=== PATIENT | male | born 1945 | race African-American/Black ===

== ENCOUNTER 2019-10-19 10:08 | Inpatient (IN) | payer OTHER ==
[2019-10-19 11:45] LABS: BASO % 0.3 % (0-2.0); EOS % 0.2 % (0-4.5); HEMATOCRIT 42.6 % (35.4-49); HEMOGLOBIN 13.9 GM/dL (11.7-16.9); LYMPH % 5.8 % (8-40); MCH 29.7 pg (25.7-33.7); MCHC 32.7 g/dl (32.0-35.9); MEAN CELL VOLUME 90.8 fl (80-96); MEAN PLT VOLUME 12.7 fl (7.5-11.1); MONO % 4.3 % (3.8-10.2); NEUT % 89.4 % (42.8-82.8); PLATELET COUNT 123 K/MM3 (134-434); RBC 4.69 M/mm3 (4.00-5.60); RDW 15.1 % (11.9-15.9); WHITE BLOOD COUNT 9.5 K/mm3 (4.0-10.0)
[2019-10-19 12:09] LABS: ALBUMIN 3.6 g/dl (3.4-5.0); BILIRUBIN,TOTAL 0.4 mg/dL (0.2-1); BLOOD UREA NITROGEN 24.5 mg/dL (7-18); CREATININE 1.7 mg/dL (0.55-1.3); MAGNESIUM 2.1 mg/dL (1.8-2.4); N-TERMINAL BNP 3053.1 pg/ml (5-450); PHOSPHOROUS 2.7 mg/dL (2.5-4.9); POTASSIUM 5.1 mmol/L (3.5-5.1); TOT PROT 6.8 g/dl (6.4-8.2)
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
[2019-10-19 12:45] LABS: PLATELET ESTIMATE DECREASED
--- NOTE | 2019-10-19 15:02 | EKG ---
Test Reason : Blood Pressure : / mmHG Vent. Rate : 080 BPM Atrial Rate : 080 BPM P-R Int : 178 ms QRS Dur : 102 ms QT Int : 406 ms P-R-T Axes : 013 -29 132 degrees QTc Int : 468 ms SINUS RHYTHM WITH OCCASIONAL PREMATURE VENTRICULAR COMPLEXES MODERATE VOLTAGE CRITERIA FOR LVH, MAY BE NORMAL VARIANT T WAVE ABNORMALITY, CONSIDER LATERAL ISCHEMIA PROLONGED QT ABNORMAL ECG WHEN COMPARED WITH ECG OF 08-FEB-2014 09:57, ST NO LONGER DEPRESSED IN INFERIOR LEADS T WAVE INVERSION MORE EVIDENT IN LATERAL LEADS QT HAS LENGTHENED Confirmed by DAVIDE DAVIS, STEFFANY ([id number]) on 10/19/2019 3:01:38 PM Referred By: Confirmed By:STEFFANY AUGUSTINE MD
[2019-10-19] MEDS ORDERED: ASPIRIN 325 MG TABLET PO ONE (15:29)
[2019-10-19] MEDS ORDERED: ASPIRIN 325 MG ENTERIC COATED TABLET (FP) ONE ×2 (15:39→15:46)
--- NOTE | 2019-10-19 15:53 | HP ---
Admitting History and Physical - Admission History of Present Illness: 74 yo M w/ a h/o asthma (hospitalized but never intubated in the past) comes in for evaluation.patient has h/o CHF, COPD, DM, HLD, CKD, he is on spiriva, tiotropium, metoprolol, metformin, isosorbide, hydralazine, gabapentin, flovent , atorvastatin, was seen at the office yesterday for SOB, Dx COPD exacerbation, which is why he was sent to the [facility]'s office for treatments He was at [facility] for a spirometry test, and was sent up for abnormal vital signs (oxygen or heart rate?). He denies any complaints at this time but admits to an episode of L sided chest pain after he got his EKG done. It lasted seconds and has since resolved. No CP now, no SOB but says that for the past 3 days, when he walks he gets SOB. He called his PMD, was placed on Prednisone which he is currently taking (Day 2). in ER he got aspirin EKLG done showed PVC History Source: Patient - Past Medical History Cardiovascular: Yes: Hyperlipdemia Pulmonary: Yes: Asthma Renal/: Yes: Renal Inusuff Endocrine: Yes: Diabetes Mellitus - Smoking History Smoking history: Former smoker Have you smoked in the past 12 months: No Aproximately how many cigarettes per day: 6 If you are a former smoker, when did you quit?: 1979 - Alcohol/Substance Use Hx Alcohol Use: No Home Medications - Allergies Allergies/Adverse Reactions: Allergies Allergy/AdvReac Type Severity Reaction Status Date / Time No Known Drug Allergies Allergy Verified 10/19/19 10:18 - Home Medications Home Medications: Ambulatory Orders Albuterol Sulfate Inhaler - [Ventolin Hfa Inhaler -] 2 inh PO Q4H 10/19/19 Albuterol Sulfate [Proair Hfa] 8.5 gm IH BID 10/19/19 Atorvastatin Ca [Lipitor] 20 mg PO HS 10/19/19 Fluticasone Propionate [Flovent Hfa] 110 mcg IH BID 10/19/19 Furosemide 20 mg PO DAILY 10/19/19 Hydralazine HCl 10 mg PO DAILY 10/19/19 Isosorbide Mononitrate [Isosorbide Mononitrate ER] 30 mg PO DAILY 10/19/19 Metformin HCl [Glucophage] 500 mg PO BID 10/19/19 Metoprolol Succinate 25 mg PO DAILY 10/19/19 Prednisone 20 mg PO DAILY 10/19/19 Tamsulosin HCl 0.4 mg PO TID 10/19/19 Tiotropium [place] [Spiriva Respimat] 4 gm IH DAILY 10/19/19 Review of Systems - Review of Systems Respiratory: reports: SOB, SOB on Exertion Physical Examination Vital Signs: Vital Signs Temperature 97.6 F 10/19/19 10:10 Pulse Rate 74 10/19/19 13:00 Respiratory Rate 18 10/19/19 13:00 Blood Pressure 112/78 10/19/19 13:00 O2 Sat by Pulse Oximetry (%) 99 10/19/19 13:00 Constitutional: Yes: Calm Neck: Yes: Trachea Midline Cardiovascular: Yes: Regular Rate and Rhythm, S1, S2 Respiratory: Yes: Diminished Gastrointestinal: Yes: Normal Bowel Sounds, Soft Edema: No Neurological: Yes: Alert, Oriented Labs: CBC, BMP 10/19/19 11:15 10/19/19 11:15 Imaging - Results X-ray: Report Reviewed (no congestion no inftrates) EKG: Report Reviewed (PVC noted) Problem List - Problems (1) Asthma Assessment/Plan: oxygen brnchodilators solumedrol pulm consult Code(s): J45.909 - UNSPECIFIED ASTHMA, UNCOMPLICATED (2) Abnormal EKG Assessment/Plan: cardiology eval echo trend troponin lipid panel Code(s): R94.31 - ABNORMAL ELECTROCARDIOGRAM [ECG] [EKG] (3) Diabetes Assessment/Plan: sliding scale hgba1c bgm Code(s): E11.9 - TYPE 2 DIABETES MELLITUS WITHOUT COMPLICATIONS Qualifiers: Diabetes mellitus type: type 2 (4) CKD (chronic kidney disease) Assessment/Plan: last creatinine was 1.7 as outpatient Code(s): N18.9 - CHRONIC KIDNEY DISEASE, UNSPECIFIED
[2019-10-19] MEDS ORDERED: HEPARIN NA (PORCINE) 5,000 UNITS/ML 1ML VIAL IVPUSH PRN ×2 (16:04)
[2019-10-19] MEDS ORDERED: HEPARIN INFUSION - 25,000 UNITS/500 ML INFUS.BAG IVPB ONE (16:36)
[2019-10-19] MEDS ORDERED: METOPROLOL TARTRATE 25 MG TABLET (FP) ONE (16:36)
[2019-10-19] MEDS: HEPARIN INFUSION - 25,000 UNITS/500 ML INFUS.BAG IV SCH (16:46)
[2019-10-19] MEDS: metoPROLOL SUCCINATE 25 MG TAB.SR.24H (FP) PO SCH (16:46)
[2019-10-19] MEDS: INSULIN SLIDING SCALE (NOVOLOG) 1 VIAL SQ SCH ×2 (19:09→23:31)
[2019-10-19] MEDS ORDERED: methylPREDNISolone NA SUCC 40 MG/1 ML VIAL ONE (19:11)
[2019-10-19] MEDS: methylPREDNISolone NA SUCC 40 MG/1 ML VIAL IVPUSH SCH (19:18)
[2019-10-19] MEDS ORDERED: ALBUTEROL SO4 0.083% IH SOL 2.5 MG/3 ML VIAL.NEB. NEB ONE ×2 (20:29→23:19)
[2019-10-19] MEDS: ALBUTEROL SO4 0.083% IH SOL 2.5 MG/3 ML VIAL.NEB. NEB SCH ×2 (20:40→23:32)
[2019-10-19] MEDS ORDERED: HEPARIN NA (PORCINE) 5,000 UNITS/ML 1ML VIAL ONE (23:19)
[2019-10-19] MEDS ORDERED: ATORVASTATIN CA 20 MG TABLET (FP) ONE (23:19)
[2019-10-19] MEDS: ATORVASTATIN CA 20 MG TABLET (FP) PO SCH (23:31)
[2019-10-20] MEDS ORDERED: ALBUTEROL SO4 0.083% IH SOL 2.5 MG/3 ML VIAL.NEB. NEB ONE ×2 (03:27→12:39)
[2019-10-20] MEDS ORDERED: methylPREDNISolone NA SUCC 40 MG/1 ML VIAL ONE (03:27)
[2019-10-20] MEDS: ALBUTEROL SO4 0.083% IH SOL 2.5 MG/3 ML VIAL.NEB. NEB SCH ×4 (03:31→20:45)
[2019-10-20] MEDS: methylPREDNISolone NA SUCC 40 MG/1 ML VIAL IVPUSH SCH ×3 (03:31→17:37)
[2019-10-20 07:47] LABS: BASO % 0.3 % (0-2.0); HEMATOCRIT 41.1 % (35.4-49); HEMOGLOBIN 13.4 GM/dL (11.7-16.9); LYMPH % 5.1 % (8-40); MCH 29.7 pg (25.7-33.7); MCHC 32.6 g/dl (32.0-35.9); MEAN CELL VOLUME 91.1 fl (80-96); MEAN PLT VOLUME 12.8 fl (7.5-11.1); NEUT % 91.6 % (42.8-82.8); PLATELET COUNT 99 K/MM3 (134-434); RBC 4.51 M/mm3 (4.00-5.60); RDW 15.2 % (11.9-15.9); WHITE BLOOD COUNT 8.8 K/mm3 (4.0-10.0)
[2019-10-20 08:09] LABS: ALBUMIN 3.5 g/dl (3.4-5.0); BILIRUBIN,TOTAL 0.3 mg/dL (0.2-1); CALCIUM 9.1 mg/dL (8.5-10.1); CREATININE 1.7 mg/dL (0.55-1.3); MAGNESIUM 2.2 mg/dL (1.8-2.4); N-TERMINAL BNP 2656.9 pg/ml (5-450); PHOSPHOROUS 3.1 mg/dL (2.5-4.9); POTASSIUM 4.5 mmol/L (3.5-5.1); TOT PROT 6.4 g/dl (6.4-8.2)
[2019-10-20] MEDS: INSULIN SLIDING SCALE (NOVOLOG) 1 VIAL SQ SCH ×4 (08:14→21:21)
[2019-10-20] MEDS: TAMSULOSIN HCL 0.4 MG CAP PO SCH (08:45)
[2019-10-20] MEDS: TIOTROPIUM BROMIDE 2.5 MCG (SPIRIVA) RESPIMAT INHALER IH SCH (10:25)
[2019-10-20] MEDS: metoPROLOL SUCCINATE 25 MG TAB.SR.24H (FP) PO SCH (10:25)
[2019-10-20 10:56] LABS: ANISOCYTOSIS 0; MACROCYTOSIS 0; PLATELET ESTIMATE DECREASED
--- NOTE | 2019-10-20 12:12 | PN ---
Progress Note, Physician Chief Complaint: patient seen and examined his breathing is much better on heparin drip for positive troponin echo pending - Current Medication List Current Medications: Active Medications Albuterol Sulfate (Ventolin 0.083% Nebulizer Soln -) 1 amp NEB RQ4H [facility] Last Admin: 10/20/19 08:16 Dose: 1 amp Atorvastatin Calcium (Lipitor -) 20 mg PO HS [facility] Last Admin: 10/19/19 23:31 Dose: 20 mg Heparin Sodium (Porcine) (Heparin -) 1,000 unit IVPUSH PRN PRN PRN Reason: Heparin Heparin Sodium (Porcine) (Heparin -) 5,000 unit IVPUSH PRN PRN PRN Reason: Heparin Heparin Sodium/Dextrose (Heparin Infusion -) 25,000 units in 500 mls @ 16 mls/ hr IV TITR [facility]; Protocol Last Titration: 10/19/19 23:29 Dose: 950 units/hr, 19 mls/hr Insulin Aspart (Novolog Vial Sliding Scale -) 1 vial SQ ACHS [facility]; Protocol Last Admin: 10/20/19 08:14 Dose: Not Given Methylprednisolone Sodium Succinate (Solu-Medrol -) 40 mg IVPUSH Q8H-IV [facility] Last Admin: 10/20/19 10:24 Dose: 40 mg Metoprolol Succinate (Toprol Xl -) 25 mg PO DAILY [facility] Last Admin: 10/20/19 10:25 Dose: 25 mg Tamsulosin HCl (Flomax -) 0.8 mg PO DAILY@0830 [facility] Last Admin: 10/20/19 08:45 Dose: 0.8 mg Tiotropium [place] (Spiriva Respimat) 2 puff IH DAILY [facility] Last Admin: 10/20/19 10:25 Dose: 2 puff - Objective Vital Signs: Vital Signs Temperature 97.9 F 10/20/19 05:47 Pulse Rate 70 10/20/19 05:47 Respiratory Rate 18 10/20/19 05:47 Blood Pressure 116/70 10/20/19 05:47 O2 Sat by Pulse Oximetry (%) 100 10/20/19 05:47 Constitutional: Yes: Calm Cardiovascular: Yes: Regular Rate and Rhythm, S1, S2 Respiratory: Yes: CTA Bilaterally Gastrointestinal: Yes: Normal Bowel Sounds, Soft Edema: No Neurological: Yes: Alert, Oriented Labs: CBC, BMP 10/20/19 05:30 10/20/19 05:30 Problem List - Problems (1) Asthma Assessment/Plan: oxygen bronchodilators solumedrol pulm eval Code(s): J45.909 - UNSPECIFIED ASTHMA, UNCOMPLICATED (2) Abnormal EKG Assessment/Plan: cardiology eval echo pending trending down lipid panel noted will start on statin Code(s): R94.31 - ABNORMAL ELECTROCARDIOGRAM [ECG] [EKG] (3) Diabetes Assessment/Plan: sliding scale hgba1c 6.1 bgm Code(s): E11.9 - TYPE 2 DIABETES MELLITUS WITHOUT COMPLICATIONS Qualifiers: Diabetes mellitus type: type 2 (4) CKD (chronic kidney disease) Assessment/Plan: last creatinine was 1.7 as outpatient and currently stable at baseline Code(s): N18.9 - CHRONIC KIDNEY DISEASE, UNSPECIFIED (5) BPH (benign prostatic hyperplasia) Assessment/Plan: flomax Code(s): N40.0 - BENIGN PROSTATIC HYPERPLASIA WITHOUT LOWER URINRY TRACT SYMP
--- NOTE | 2019-10-20 13:09 | EKG ---
Test Reason : Blood Pressure : / mmHG Vent. Rate : 079 BPM Atrial Rate : 079 BPM P-R Int : 168 ms QRS Dur : 102 ms QT Int : 424 ms P-R-T Axes : 032 -24 131 degrees QTc Int : 486 ms SINUS RHYTHM WITH FREQUENT and consecutive PREMATURE VENTRICULAR COMPLEXES MODERATE VOLTAGE CRITERIA FOR LVH, MAY BE NORMAL VARIANT T WAVE ABNORMALITY, CONSIDER LATERAL ISCHEMIA PROLONGED QT ABNORMAL ECG WHEN COMPARED WITH ECG OF 19-OCT-2019 12:41, NO SIGNIFICANT CHANGE WAS FOUND Confirmed by ROSY HENDRICKSON MD ([id number]) on 10/20/2019 1:08:53 PM Referred By: Confirmed By:ROSY HENDRICKSON MD
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
--- NOTE | 2019-10-20 14:03 | CON.CARD ---
Consult Consult Specialty:: Cardiology Referred by:: Dr. Tavarez Reason for Consultation:: SOB, chest pain, elevated troponin - History of Present Illness Chief Complaint: sob History of Present Illness: 74 year old man with a pmh HTN, HLD, DMII, CKD, COPD, h/o CHF admitted with sob and marrufo. He was started on treatment for presumed AE COPD as outpatient with prednisone but did not improve. On admission noted to have LILLIAN, and a mildly elevated troponin that has trended down with normal CK level. EKG showed nsr with frequent PVCs, LVH with possible lateral ischemia vs repolarization abnl. pt seen and examined in the ER in nad. receiving bronchodilator nebulizer and states he is feeling better. no current chest pain or sob. no palpitations. - Past Medical History Cardio/Vascular: Yes: Hyperlipdemia Pulmonary: Yes: Asthma Renal/: Yes: Renal Inusuff Endocrine: Yes: Diabetes Mellitus - Alcohol/Substance Use Hx Alcohol Use: No - Smoking History Smoking history: Former smoker Have you smoked in the past 12 months: No Aproximately how many cigarettes per day: 6 If you are a former smoker, when did you quit?: 1979 Home Medications - Allergies Allergies/Adverse Reactions: Allergies Allergy/AdvReac Type Severity Reaction Status Date / Time No Known Drug Allergies Allergy Verified 10/19/19 10:18 - Home Medications Home Medications: Ambulatory Orders Albuterol Sulfate Inhaler - [Ventolin Hfa Inhaler -] 2 inh PO Q4H 10/19/19 Albuterol Sulfate [Proair Hfa] 8.5 gm IH BID 10/19/19 Atorvastatin Ca [Lipitor] 20 mg PO HS 10/19/19 Fluticasone Propionate [Flovent Hfa] 110 mcg IH BID 10/19/19 Furosemide 20 mg PO DAILY 10/19/19 Hydralazine HCl 10 mg PO DAILY 10/19/19 Isosorbide Mononitrate [Isosorbide Mononitrate ER] 30 mg PO DAILY 10/19/19 Metformin HCl [Glucophage] 500 mg PO BID 10/19/19 Metoprolol Succinate 25 mg PO DAILY 10/19/19 Prednisone 20 mg PO DAILY 10/19/19 Tamsulosin HCl 0.4 mg PO TID 10/19/19 Tiotropium [place] [Spiriva Respimat] 4 gm IH DAILY 10/19/19 Vital Signs: Vital Signs Temperature 97.2 F L 10/20/19 13:00 Pulse Rate 71 10/20/19 13:00 Respiratory Rate 20 10/20/19 13:00 Blood Pressure 131/75 10/20/19 13:00 O2 Sat by Pulse Oximetry (%) 100 10/20/19 13:00 - Other Data Labs, Other Data: CBC, BMP 10/20/19 05:30 10/20/19 05:30 Troponin, BNP 10/19/19 10/20/19 15:50 05:30 Troponin I 0.66 H* 0.59 H B-Natriuretic Peptide 2656.9 H Troponin, BNP 10/19/19 10/20/19 15:50 05:30 Troponin I 0.66 H* 0.59 H B-Natriuretic Peptide 2656.9 H Assessment/Plan 74 year old man with a pmh HTN, HLD, DMII, CKD, COPD, h/o CHF admitted with sob and marrufo. He was started on treatment for presumed AE COPD as outpatient with prednisone but did not improve. On admission noted to have LILLIAN, and a mildly elevated troponin that has trended down with normal CK level. EKG showed nsr with frequent PVCs, LVH with possible lateral ischemia vs repolarization abnl. pt seen and examined in the ER in nad. receiving bronchodilator nebulizer and states he is feeling better. no current chest pain or sob. no palpitations. SOB/chest pain -likely multifactorial, primarily due to AE COPD -troponin was mildly elevated but trended down and with a normal CK level and in the setting of LILLIAN and possible CHF -not likely c/w ACS -receiving heparin gtt which can be stopped 10/21 -start ASA 81mg daily if no contraindications -cont statin -cont metoprolol if not felt to exacerbate COPD -no sig volume overload on exam or on Cxray -hold off on diuretics for now can use IV Lasix prn -check echo to evaluate LV function and valvular function -may consider ischemic evaluation when symptoms improve
--- NOTE | 2019-10-20 15:34 | CON.PULM ---
Consult Consult Specialty:: PULMONARY Referred by:: PMShelby Reason for Consultation:: COPD - History of Present Illness Chief Complaint: SOB/COUGH/WHEEZE History of Present Illness: 74 yo M w/ a h/o COPD/B. asthma (hospitalized but never intubated in the past) comes in for evaluation.patient has h/o CHF, COPD, DM, HLD, CKD, he is on spiriva, tiotropium, metoprolol, metformin, isosorbide, hydralazine, gabapentin , flovent, atorvastatin, was seen at pmd's office yesterday for SOB, Dx COPD exacerbation. He was at respiratory therapy for a spirometry test, and was sent up for abnormal vital signs. He denies any complaints at this time but admits to an episode of L sided chest pain after he got his EKG done. It lasted seconds and has since resolved. No CP now, no SOB but says that for the past 3 days, when he walks he gets SOB. He called his PMD, was placed on Prednisone which he is currently taking (Day 2). - History Source History Provided By: Patient, Medical Record Limitations to Obtaining History: Poor Historian - Past Medical History REQUIREMENTS MANAGER: No: Alzheimer's Cardio/Vascular: Yes: Hyperlipdemia Pulmonary: Yes: Asthma Renal/: Yes: Renal Inusuff Endocrine: Yes: Diabetes Mellitus - Alcohol/Substance Use Hx Alcohol Use: No - Smoking History Smoking history: Former smoker Have you smoked in the past 12 months: No Aproximately how many cigarettes per day: 6 If you are a former smoker, when did you quit?: 1979 Home Medications - Allergies Allergies/Adverse Reactions: Allergies Allergy/AdvReac Type Severity Reaction Status Date / Time No Known Drug Allergies Allergy Verified 10/19/19 10:18 - Home Medications Home Medications: Ambulatory Orders Albuterol Sulfate Inhaler - [Ventolin Hfa Inhaler -] 2 inh PO Q4H 10/19/19 Albuterol Sulfate [Proair Hfa] 8.5 gm IH BID 10/19/19 Atorvastatin Ca [Lipitor] 20 mg PO HS 10/19/19 Fluticasone Propionate [Flovent Hfa] 110 mcg IH BID 10/19/19 Furosemide 20 mg PO DAILY 10/19/19 Hydralazine HCl 10 mg PO DAILY 10/19/19 Isosorbide Mononitrate [Isosorbide Mononitrate ER] 30 mg PO DAILY 10/19/19 Metformin HCl [Glucophage] 500 mg PO BID 10/19/19 Metoprolol Succinate 25 mg PO DAILY 10/19/19 Prednisone 20 mg PO DAILY 10/19/19 Tamsulosin HCl 0.4 mg PO TID 10/19/19 Tiotropium [place] [Spiriva Respimat] 4 gm IH DAILY 10/19/19 Review of Systems - Review of Systems Constitutional: denies: Fever Eyes: denies: Blurred Vision HENT: denies: Difficult Swallowing Neck: denies: Decreased ROM Cardiovascular: reports: Chest Pain, Shortness of Breath Respiratory: reports: Cough, Exercise Intolerance, SOB on Exertion, Wheezing. denies: Hemoptysis Gastrointestinal: denies: Abdominal Pain Genitourinary: denies: Burning Physical Exam Vital Sings: Vital Signs Temperature 98.8 F 10/20/19 15:00 Pulse Rate 84 10/20/19 15:00 Respiratory Rate 20 10/20/19 15:00 Blood Pressure 132/78 10/20/19 15:00 O2 Sat by Pulse Oximetry (%) 99 10/20/19 15:00 Constitutional: Yes: Calm Eyes: Yes: EOM Intact HENT: Yes: Normocephalic Neck: Yes: Trachea Midline Cardiovascular: Yes: S1, S2 Respiratory: Yes: Diminished Gastrointestinal: Yes: Normal Bowel Sounds Extremities: Yes: WNL Labs: CBC, BMP 10/20/19 05:30 10/20/19 05:30 Imaging - Results Chest X-ray: Report Reviewed, Image Reviewed Problem List - Problems (1) COPD (chronic obstructive pulmonary disease) Code(s): J44.9 - CHRONIC OBSTRUCTIVE PULMONARY DISEASE, UNSPECIFIED (2) Asthma Code(s): J45.909 - UNSPECIFIED ASTHMA, UNCOMPLICATED (3) BPH (benign prostatic hyperplasia) Code(s): N40.0 - BENIGN PROSTATIC HYPERPLASIA WITHOUT LOWER URINRY TRACT SYMP (4) CKD (chronic kidney disease) Code(s): N18.9 - CHRONIC KIDNEY DISEASE, UNSPECIFIED (5) Diabetes Code(s): E11.9 - TYPE 2 DIABETES MELLITUS WITHOUT COMPLICATIONS Qualifiers: Diabetes mellitus type: type 2 Assessment/Plan A/ COPD WITH BRONCHOSPASTIC COMPONENT MULTIPLE CO-MORBID CONDITIONS LISTED CHEST PAIN LIKELY FROM COUGH CYCLE TROPS/EKG AM/ECHO ORDERED BY PMD CARDIO NOTE REVIEWED A/E COPD/FORMER SMOKER QUIT 2 MONTHS AGO SAYRA/ICS/LABA/LAMA/ANTIBIOTICS/SHORT COURSE IV STEROIDS ENCOURAGE SMOKING CESSATION OUTPATIENT PFT'S WILL FOLLOW Chip WHITAKER MD
--- NOTE | 2019-10-20 15:54 | PN ---
Teaching Attending Note Name of Resident: Juan Mckeon (Nephrology) ATTENDING PHYSICIAN STATEMENT I saw and evaluated the patient. I reviewed the resident's note and discussed the case with the resident. I agree with the resident's findings and plan as documented. Renal Pt is a 74 year old male with pmhx of htn, dm, ckd, copd, and chf who presents with shortness of breath. He was found to have elevated public policy coordinator and I was called to evaluate him. 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 He denies dysuria or hematuria. pmhx ckd htn dm copd chf nkda social hx denies family hx non contrib ros dyspnea Current Medications Generic Name Dose Route Start Last Admin Trade Name Freq PRN Reason Stop Dose Admin Albuterol Sulfate 1 amp 10/19/19 20:00 10/20/19 12:06 Ventolin 0.083% Nebulizer Soln - NEB 1 amp RQ4H [facility] Administration Atorvastatin Calcium 20 mg 10/19/19 22:00 10/19/19 23:31 Lipitor - PO 20 mg HS [facility] Administration Budesonide/Formoterol Fumarate 2 puff 10/20/19 22:00 Symbicort 160/4.5mcg - IH BID [facility] Heparin Sodium (Porcine) 1,000 unit 10/19/19 16:04 Heparin - IVPUSH PRN PRN Heparin Heparin Sodium (Porcine) 5,000 unit 10/19/19 16:04 Heparin - IVPUSH PRN PRN Heparin Heparin Sodium/Dextrose 25,000 units in 500 mls @ 16 mls/hr 10/19/19 16:15 23:29 Heparin Infusion - IV 950 units/hr TITR [facility] 19 mls/hr Titration Protocol 800 UNITS/HR Insulin Aspart 1 vial 10/19/19 16:30 10/20/19 12:07 Novolog Vial Sliding Scale - SQ Not Given ACHS [facility] Protocol Methylprednisolone Sodium Succinate 40 mg 10/19/19 18:00 10/20/19 10:24 Solu-Medrol - IVPUSH 40 mg Q8H-IV [facility] Administration Metoprolol Succinate 25 mg 10/20/19 10:00 10/20/19 10:25 Toprol Xl - PO 25 mg DAILY [facility] Administration Tamsulosin HCl 0.8 mg 10/20/19 08:30 10/20/19 08:45 Flomax - PO 0.8 mg DAILY@0830 [facility] Administration Tiotropium [place] 2 puff 10/20/19 10:00 10/20/19 10:25 Spiriva Respimat IH 2 puff DAILY [facility] Administration Last Vital Signs Temp Pulse Resp BP Pulse Ox 98.8 F 84 20 132/78 99 10/20/19 15:00 10/20/19 15:00 10/20/19 15:00 10/20/19 15:00 10/20/19 15:00 Laboratory Tests 10/19/19 10/20/19 11:15 05:30 Creatinine 1.7 H 1.7 H cardio s1s2 pulm clear GI soft ext leg edema neuro awake and alert Impression 1. CKD 2. htn 3. dm 4. chf 5. dyspnea 6. copd Plan - check ua - check renal ultrasound - outpt workup up - avoid nephrotoxins
--- NOTE | 2019-10-20 15:59 | ECHO ---
Name: ANTONY NEWMAN Exam:Adult Echocardiogram Study Date: 10/20/2019 03:28 PM Age: 74 yrs Height: 71 in Weight: 23 lb BSA: 0.84 m2 MMode/2D Measurements & Calculations IVSd: 0.99 cm Ao root diam: 3.1 cm LVIDd: 6.0 cm LA dimension: 4.2 cm LVIDs: 4.7 cm LVPWd: 1.3 cm LVPWs: 1.2 cm EDV(Teich): 177.9 ml ESV(Teich): 102.2 ml LVOT diam: 2.2 cm LAV (MOD-bp): 90.3 ml Doppler Measurements & Calculations MV E max katheryn: 102.0 cm/sec Ao V2 max: 126.0 cm/sec MV A max katheryn: 58.7 cm/sec Ao max P.5 mmHg MV E/A: 1.7 MV dec time: 0.21 sec AGUSTÍN(V,D): 2.1 cm2 LV V1 max P.1 mmHg MR max katheryn: 443.3 cm/sec LV V1 max: 71.8 cm/sec MR max P.6 mmHg PA V2 max: 97.1 cm/sec PA max P.8 mmHg Left Ventricle The left ventricle is mildly dilated. Left ventricular systolic function is severely reduced. Ejectio n Fraction = 25-30%. There is severe global hypokinesis of the left ventricle. Right Ventricle The right ventricle is grossly normal size. The right ventricular systolic function is grossly normal . Atria The left atrium is moderately dilated. Right atrial size is normal. Mitral Valve The mitral valve is normal in structure and function. There is no mitral valve stenosis. There is mil d to moderate mitral regurgitation. Tricuspid Valve The tricuspid valve is normal in structure and function. There is mild tricuspid regurgitation. Aortic Valve There is mild to moderate aortic sclerosis.;. No hemodynamically significant valvular aortic stenosis . No aortic regurgitation is present. Pulmonic Valve The pulmonic valve is not well seen, but is grossly normal. There is no pulmonic valvular stenosis. Great Vessels The aortic root is normal size. Pericardium/Pleura There is no pericardial effusion. Interpretation Summary The left ventricle is mildly dilated. There is severe global hypokinesis of the left ventricle. Left ventricular systolic function is severely reduced. Ejection Fraction = 25-30%. The left atrium is moderately dilated. There is mild to moderate mitral regurgitation. There is mild tricuspid regurgitation. There is mild to moderate aortic sclerosis.; There is no pericardial effusion. MD Romero *Klaus 10/20/2019 03:58 PM
[2019-10-20 18:14] VITALS: BMI 32.3
[2019-10-20 19:07] LABS: PH,URINE 5.5 (5.0-8.0); URINE APPEARANCE CLEAR; URINE BILIRUBIN NEGATIVE (NEGATIVE); URINE COLOR YELLOW; URINE GLUCOSE (UA) NEGATIVE (NEGATIVE); URINE KETONE NEGATIVE (NEGATIVE); URINE LEUK ESTERASE NEGATIVE (NEGATIVE); URINE NITRITE NEGATIVE (NEGATIVE); URINE PROTEIN NEGATIVE (NEGATIVE); URINE UROBILINOGEN 0.2 mg/dL (0.2-1.0)
[2019-10-20] MEDS: ATORVASTATIN CA 20 MG TABLET (FP) PO SCH (21:20)
[2019-10-20] MEDS: HEPARIN INFUSION - 25,000 UNITS/500 ML INFUS.BAG IV SCH (21:21)
[2019-10-20] MEDS: BUDESONIDE/FORMETEROL FUMARATE 160/4.5 mcg INHALER IH SCH (22:14)
[2019-10-21] MEDS: ALBUTEROL SO4 0.083% IH SOL 2.5 MG/3 ML VIAL.NEB. NEB SCH ×6 (00:05→20:24)
[2019-10-21] MEDS: methylPREDNISolone NA SUCC 40 MG/1 ML VIAL IVPUSH SCH ×3 (01:07→17:20)
[2019-10-21] MEDS: INSULIN SLIDING SCALE (NOVOLOG) 1 VIAL SQ SCH ×4 (06:00→21:17)
[2019-10-21 08:06] LABS: ALBUMIN 3.5 g/dl (3.4-5.0); BILIRUBIN,TOTAL 0.6 mg/dL (0.2-1); BLOOD UREA NITROGEN 40.3 mg/dL (7-18); CALCIUM 9.2 mg/dL (8.5-10.1); CREATININE 1.6 mg/dL (0.55-1.3); POTASSIUM 4.5 mmol/L (3.5-5.1); TOT PROT 6.4 g/dl (6.4-8.2)
--- NOTE | 2019-10-21 08:52 | PN ---
Progress Note, Physician Chief Complaint: AWAKE ALERT EVENTS AND NOTES REVIEWED STILL WITH DYSPNEA - Current Medication List Current Medications: Active Medications Albuterol Sulfate (Ventolin 0.083% Nebulizer Soln -) 1 amp NEB RQ4H [facility] Last Admin: 10/21/19 08:00 Dose: 1 amp Atorvastatin Calcium (Lipitor -) 20 mg PO HS [facility] Last Admin: 10/20/19 21:20 Dose: 20 mg Budesonide/Formoterol Fumarate (Symbicort 160/4.5mcg -) 2 puff IH BID [facility] Last Admin: 10/20/19 22:14 Dose: 2 puff Heparin Sodium (Porcine) (Heparin -) 1,000 unit IVPUSH PRN PRN PRN Reason: Heparin Heparin Sodium (Porcine) (Heparin -) 5,000 unit IVPUSH PRN PRN PRN Reason: Heparin Heparin Sodium/Dextrose (Heparin Infusion -) 25,000 units in 500 mls @ 16 mls/ hr IV TITR [facility]; Protocol Last Admin: 10/20/19 21:21 Dose: 950 units/hr, 19 mls/hr Insulin Aspart (Novolog Vial Sliding Scale -) 1 vial SQ ACHS [facility]; Protocol Last Admin: 10/21/19 06:00 Dose: Not Given Methylprednisolone Sodium Succinate (Solu-Medrol -) 40 mg IVPUSH Q8H-IV [facility] Last Admin: 10/21/19 01:07 Dose: 40 mg Metoprolol Succinate (Toprol Xl -) 25 mg PO DAILY [facility] Last Admin: 10/20/19 10:25 Dose: 25 mg Tamsulosin HCl (Flomax -) 0.8 mg PO DAILY@0830 [facility] Last Admin: 10/20/19 08:45 Dose: 0.8 mg Tiotropium [place] (Spiriva Respimat) 2 puff IH DAILY [facility] Last Admin: 10/20/19 10:25 Dose: 2 puff - Objective Vital Signs: Vital Signs Temperature 97.7 F 10/21/19 05:48 Pulse Rate 68 10/21/19 05:48 Respiratory Rate 20 10/21/19 05:48 Blood Pressure 124/64 10/21/19 05:48 O2 Sat by Pulse Oximetry (%) 98 10/20/19 20:36 Constitutional: Yes: Mild Distress Cardiovascular: Yes: Regular Rate and Rhythm Respiratory: Yes: Diminished Gastrointestinal: Yes: Soft Genitourinary: Yes: Other Labs: CBC, BMP 10/20/19 05:30 10/21/19 06:10 Problem List - Problems (1) Abnormal EKG Code(s): R94.31 - ABNORMAL ELECTROCARDIOGRAM [ECG] [EKG] (2) Asthma Code(s): J45.909 - UNSPECIFIED ASTHMA, UNCOMPLICATED (3) BPH (benign prostatic hyperplasia) Code(s): N40.0 - BENIGN PROSTATIC HYPERPLASIA WITHOUT LOWER URINRY TRACT SYMP (4) CKD (chronic kidney disease) Code(s): N18.9 - CHRONIC KIDNEY DISEASE, UNSPECIFIED Qualifiers: Chronic kidney disease stage: unspecified stage Qualified Code(s): N18.9 - Chronic kidney disease, unspecified (5) COPD (chronic obstructive pulmonary disease) Code(s): J44.9 - CHRONIC OBSTRUCTIVE PULMONARY DISEASE, UNSPECIFIED Qualifiers: COPD type: unspecified COPD Qualified Code(s): J44.9 - Chronic obstructive pulmonary disease, unspecified (6) Diabetes Code(s): E11.9 - TYPE 2 DIABETES MELLITUS WITHOUT COMPLICATIONS Qualifiers: Diabetes mellitus type: type 2 Assessment/Plan STEROIDS IV 02 SUPPORT CARDIAC WORKUP WILL NEED CARDIAC CATH ONCE WHEEZING IS RESOLVED DVT PROPHYLAXIS OOB TO CHAIR
[2019-10-21] MEDS: BUDESONIDE/FORMETEROL FUMARATE 160/4.5 mcg INHALER IH SCH ×2 (10:16→21:16)
[2019-10-21] MEDS: TAMSULOSIN HCL 0.4 MG CAP PO SCH (10:16)
[2019-10-21] MEDS: metoPROLOL SUCCINATE 25 MG TAB.SR.24H (FP) PO SCH (10:16)
[2019-10-21 10:56] LABS: HEMATOCRIT 42.5 % (35.4-49); HEMOGLOBIN 13.7 GM/dL (11.7-16.9); MCH 29.4 pg (25.7-33.7); MCHC 32.2 g/dl (32.0-35.9); MEAN CELL VOLUME 91.4 fl (80-96); MEAN PLT VOLUME 15.2 fl (7.5-11.1); PLATELET COUNT 111 K/MM3 (134-434); RBC 4.66 M/mm3 (4.00-5.60); WHITE BLOOD COUNT 13.3 K/mm3 (4.0-10.0)
--- NOTE | 2019-10-21 13:27 | PN ---
Progress Note, Physician Chief Complaint: No chest pain SOB improved Lying flat in bed Sinus rhythm with pvc's History of Present Illness: 74 year old man with a pmh HTN, HLD, DMII, CKD, COPD, h/o CHF admitted with sob and marrufo. He was started on treatment for presumed AE COPD as outpatient with prednisone but did not improve. On admission noted to have LILLIAN, and a mildly elevated troponin that has trended down with normal CK level. EKG showed nsr with frequent PVCs, LVH with possible lateral ischemia vs repolarization abnl. pt seen and examined in the ER in nad. receiving bronchodilator nebulizer and states he is feeling better. no current chest pain or sob. no palpitations. Echocardiogram 10/20/19: LVEF 25-30% - Current Medication List Current Medications: Active Medications Albuterol Sulfate (Ventolin 0.083% Nebulizer Soln -) 1 amp NEB RQ4H [facility] Last Admin: 10/21/19 12:00 Dose: 1 amp Atorvastatin Calcium (Lipitor -) 20 mg PO HS [facility] Last Admin: 10/20/19 21:20 Dose: 20 mg Budesonide/Formoterol Fumarate (Symbicort 160/4.5mcg -) 2 puff IH BID [facility] Last Admin: 10/21/19 10:16 Dose: 2 puff Heparin Sodium (Porcine) (Heparin -) 1,000 unit IVPUSH PRN PRN PRN Reason: Heparin Heparin Sodium (Porcine) (Heparin -) 5,000 unit IVPUSH PRN PRN PRN Reason: Heparin Heparin Sodium/Dextrose (Heparin Infusion -) 25,000 units in 500 mls @ 16 mls/ hr IV TITR [facility]; Protocol Last Admin: 10/20/19 21:21 Dose: 950 units/hr, 19 mls/hr Insulin Aspart (Novolog Vial Sliding Scale -) 1 vial SQ ACHS [facility]; Protocol Last Admin: 10/21/19 11:25 Dose: Not Given Methylprednisolone Sodium Succinate (Solu-Medrol -) 40 mg IVPUSH Q8H-IV [facility] Last Admin: 10/21/19 10:16 Dose: 40 mg Metoprolol Succinate (Toprol Xl -) 25 mg PO DAILY [facility] Last Admin: 10/21/19 10:16 Dose: 25 mg Tamsulosin HCl (Flomax -) 0.8 mg PO DAILY@0830 [facility] Last Admin: 10/21/19 10:16 Dose: 0.8 mg Tiotropium [place] (Spiriva Respimat) 2 puff IH DAILY [facility] Last Admin: 10/20/19 10:25 Dose: 2 puff - Objective Vital Signs: Vital Signs Temperature 97.7 F 10/21/19 10:10 Pulse Rate 77 10/21/19 10:10 Respiratory Rate 18 10/21/19 10:10 Blood Pressure 131/50 L 10/21/19 10:10 O2 Sat by Pulse Oximetry (%) 98 10/20/19 20:36 Constitutional: Yes: No Distress Neck: Yes: Supple Cardiovascular: Yes: Regular Rate and Rhythm, S1, S2. No: JVD, Murmur Respiratory: Yes: CTA Bilaterally Gastrointestinal: Yes: Soft Edema: No Labs: CBC, BMP 10/21/19 06:10 10/21/19 06:10 Assessment/Plan 74 year old man with a pmh HTN, HLD, DMII, CKD, COPD, h/o CHF admitted with sob and marrufo. He was started on treatment for presumed AE COPD as outpatient with prednisone but did not improve. On admission noted to have LILLIAN, and a mildly elevated troponin that has trended down with normal CK level. EKG showed nsr with frequent PVCs, LVH with possible lateral ischemia vs repolarization abnl. pt seen and examined in the ER in nad. receiving bronchodilator nebulizer and states he is feeling better. no current chest pain or sob. no palpitations. SOB/chest pain -likely multifactorial, primarily due to AE COPD -troponin was mildly elevated but trended down and with a normal CK level and in the setting of LILLIAN and possible CHF Stop heparin drip today -Aspirin 81mg daily, statin, low dose metoprolol started. -Today appears euvolemic on exam. -hold off on diuretics for now can use IV Lasix prn -Echocardiogram LVEF 25-30%, mild valve abnormalities. -Given echocardiogram findings, risk factors for CAD, and baseline ekg would plan for ischemia evaluation next week. Will monitor bun/cr prior. Will also ensure no active wheezing prior to any cath. Will re-eval on Wednesday and decide on timing. -intermediate card tender if BP and bun/cr/potassium allow will consider katerin/arb
--- NOTE | 2019-10-21 13:29 | PN ---
Progress Note (short form) - Note Progress Note: PULMONARY States breathing is improving. No cough or wheezing. Vital Signs Period Temp Pulse Resp BP Sys/Fuchs Pulse Ox Last 24 Hr 97.4 F-98.8 F 61-84 18-20 108-139/50-79 98-99 Gen: NAD at rest Heart: RRR Lung: decreased breath sounds at the bases Abd: soft, nontender Ext: no edema CBC, BMP 10/21/19 06:10 10/21/19 06:10 Active Medications Albuterol Sulfate (Ventolin 0.083% Nebulizer Soln -) 1 amp NEB RQ4H [facility] Last Admin: 10/21/19 12:00 Dose: 1 amp Atorvastatin Calcium (Lipitor -) 20 mg PO HS [facility] Last Admin: 10/20/19 21:20 Dose: 20 mg Budesonide/Formoterol Fumarate (Symbicort 160/4.5mcg -) 2 puff IH BID [facility] Last Admin: 10/21/19 10:16 Dose: 2 puff Heparin Sodium (Porcine) (Heparin -) 1,000 unit IVPUSH PRN PRN PRN Reason: Heparin Heparin Sodium (Porcine) (Heparin -) 5,000 unit IVPUSH PRN PRN PRN Reason: Heparin Heparin Sodium/Dextrose (Heparin Infusion -) 25,000 units in 500 mls @ 16 mls/ hr IV TITR [facility]; Protocol Last Admin: 10/20/19 21:21 Dose: 950 units/hr, 19 mls/hr Insulin Aspart (Novolog Vial Sliding Scale -) 1 vial SQ ACHS [facility]; Protocol Last Admin: 10/21/19 11:25 Dose: Not Given Methylprednisolone Sodium Succinate (Solu-Medrol -) 40 mg IVPUSH Q8H-IV [facility] Last Admin: 10/21/19 10:16 Dose: 40 mg Metoprolol Succinate (Toprol Xl -) 25 mg PO DAILY [facility] Last Admin: 10/21/19 10:16 Dose: 25 mg Tamsulosin HCl (Flomax -) 0.8 mg PO DAILY@0830 [facility] Last Admin: 10/21/19 10:16 Dose: 0.8 mg Tiotropium [place] (Spiriva Respimat) 2 puff IH DAILY [facility] Last Admin: 10/20/19 10:25 Dose: 2 puff A/P Acute COPD Exacerbation LV Systolic Dysfunction +Troponins likely [place] Ischemia CKD HTN DM Hyperlipidemia - continue medrol at current dose - can likely change to PO prednisone in AM - inhaled bronchodilators - O2 to keep SpO2 >90% - smoking cessation - outpt PFTs - DVT prophylaxis
[2019-10-21] MEDS: TIOTROPIUM BROMIDE 2.5 MCG (SPIRIVA) RESPIMAT INHALER IH SCH (14:20)
--- NOTE | 2019-10-21 15:31 | PN ---
Progress Note (short form) - Note Progress Note: covering dr ng 1. CKD 2. htn 3. dm 4. chf 5. dyspnea 6. copd Active Medications Albuterol Sulfate (Ventolin 0.083% Nebulizer Soln -) 1 amp NEB RQ4H [facility] Last Admin: 10/21/19 12:00 Dose: 1 amp Atorvastatin Calcium (Lipitor -) 20 mg PO HS [facility] Last Admin: 10/20/19 21:20 Dose: 20 mg Budesonide/Formoterol Fumarate (Symbicort 160/4.5mcg -) 2 puff IH BID [facility] Last Admin: 10/21/19 10:16 Dose: 2 puff Heparin Sodium (Porcine) (Heparin -) 1,000 unit IVPUSH PRN PRN PRN Reason: Heparin Heparin Sodium (Porcine) (Heparin -) 5,000 unit IVPUSH PRN PRN PRN Reason: Heparin Heparin Sodium/Dextrose (Heparin Infusion -) 25,000 units in 500 mls @ 16 mls/ hr IV TITR [facility]; Protocol Last Admin: 10/20/19 21:21 Dose: 950 units/hr, 19 mls/hr Insulin Aspart (Novolog Vial Sliding Scale -) 1 vial SQ ACHS [facility]; Protocol Last Admin: 10/21/19 11:25 Dose: Not Given Methylprednisolone Sodium Succinate (Solu-Medrol -) 40 mg IVPUSH Q8H-IV [facility] Last Admin: 10/21/19 10:16 Dose: 40 mg Metoprolol Succinate (Toprol Xl -) 25 mg PO DAILY [facility] Last Admin: 10/21/19 10:16 Dose: 25 mg Tamsulosin HCl (Flomax -) 0.8 mg PO DAILY@0830 [facility] Last Admin: 10/21/19 10:16 Dose: 0.8 mg Tiotropium [place] (Spiriva Respimat) 2 puff IH DAILY [facility] Last Admin: 10/21/19 14:20 Dose: 2 puff Last Vital Signs Temp Pulse Resp BP Pulse Ox 97.6 F 80 18 114/59 L 98 10/21/19 14:00 10/21/19 14:00 10/21/19 14:00 10/21/19 14:00 10/21/19 10:10 CBC, BMP 10/21/19 06:10 10/21/19 06:10 IMP- Prob ckd non-obstructive Plan - check ua - check renal ultrasound - outpt workup up - avoid nephrotoxins
[2019-10-21] MEDS: ATORVASTATIN CA 20 MG TABLET (FP) PO SCH (21:16)
[2019-10-22] MEDS: methylPREDNISolone NA SUCC 40 MG/1 ML VIAL IVPUSH SCH ×2 (02:28→09:31)
[2019-10-22] MEDS: ALBUTEROL SO4 0.083% IH SOL 2.5 MG/3 ML VIAL.NEB. NEB SCH ×6 (02:43→23:37)
[2019-10-22] MEDS: INSULIN SLIDING SCALE (NOVOLOG) 1 VIAL SQ SCH ×4 (06:06→22:28)
--- NOTE | 2019-10-22 07:50 | PN ---
Progress Note, Physician Chief Complaint: AWAKE ALERT FEEING BETTER NO CP/SOB REPORTED TODAY - Current Medication List Current Medications: Active Medications Albuterol Sulfate (Ventolin 0.083% Nebulizer Soln -) 1 amp NEB RQ4H [facility] Last Admin: 10/22/19 02:43 Dose: 1 amp Atorvastatin Calcium (Lipitor -) 20 mg PO HS [facility] Last Admin: 10/21/19 21:16 Dose: 20 mg Budesonide/Formoterol Fumarate (Symbicort 160/4.5mcg -) 2 puff IH BID [facility] Last Admin: 10/21/19 21:16 Dose: 2 puff Insulin Aspart (Novolog Vial Sliding Scale -) 1 vial SQ ACHS [facility]; Protocol Last Admin: 10/22/19 06:06 Dose: Not Given Methylprednisolone Sodium Succinate (Solu-Medrol -) 40 mg IVPUSH Q8H-IV [facility] Last Admin: 10/22/19 02:28 Dose: 40 mg Metoprolol Succinate (Toprol Xl -) 25 mg PO DAILY [facility] Last Admin: 10/21/19 10:16 Dose: 25 mg Tamsulosin HCl (Flomax -) 0.8 mg PO DAILY@0830 [facility] Last Admin: 10/21/19 10:16 Dose: 0.8 mg Tiotropium [place] (Spiriva Respimat) 2 puff IH DAILY [facility] Last Admin: 10/21/19 14:20 Dose: 2 puff - Objective Vital Signs: Vital Signs Temperature 97.8 F 10/22/19 06:00 Pulse Rate 91 H 10/22/19 06:00 Respiratory Rate 18 10/22/19 06:00 Blood Pressure 151/80 10/22/19 06:00 O2 Sat by Pulse Oximetry (%) 96 10/21/19 21:00 Constitutional: Yes: No Distress Cardiovascular: Yes: Regular Rate and Rhythm Respiratory: Yes: CTA Bilaterally Gastrointestinal: Yes: WNL Musculoskeletal: Yes: WNL Extremities: Yes: WNL Labs: CBC, BMP 10/21/19 06:10 10/21/19 06:10 Problem List - Problems (1) Abnormal EKG Code(s): R94.31 - ABNORMAL ELECTROCARDIOGRAM [ECG] [EKG] (2) Asthma Code(s): J45.909 - UNSPECIFIED ASTHMA, UNCOMPLICATED (3) BPH (benign prostatic hyperplasia) Code(s): N40.0 - BENIGN PROSTATIC HYPERPLASIA WITHOUT LOWER URINRY TRACT SYMP (4) CKD (chronic kidney disease) Code(s): N18.9 - CHRONIC KIDNEY DISEASE, UNSPECIFIED Qualifiers: Chronic kidney disease stage: unspecified stage Qualified Code(s): N18.9 - Chronic kidney disease, unspecified (5) COPD (chronic obstructive pulmonary disease) Code(s): J44.9 - CHRONIC OBSTRUCTIVE PULMONARY DISEASE, UNSPECIFIED Qualifiers: COPD type: unspecified COPD Qualified Code(s): J44.9 - Chronic obstructive pulmonary disease, unspecified (6) Diabetes Code(s): E11.9 - TYPE 2 DIABETES MELLITUS WITHOUT COMPLICATIONS Qualifiers: Diabetes mellitus type: type 2 Assessment/Plan MEDICALLY CLEARED FOR CARDIAC CATH D/W CARDIOLOGY FOR TRAMSFER ORDERS OOB TO CHAIR DVT PROPHYLAXIS TAPER OFF STEROIDS
[2019-10-22] MEDS: TAMSULOSIN HCL 0.4 MG CAP PO SCH (08:30)
[2019-10-22] MEDS: metoPROLOL SUCCINATE 25 MG TAB.SR.24H (FP) PO SCH (09:31)
[2019-10-22] MEDS: TIOTROPIUM BROMIDE 2.5 MCG (SPIRIVA) RESPIMAT INHALER IH SCH (09:38)
[2019-10-22] MEDS: BUDESONIDE/FORMETEROL FUMARATE 160/4.5 mcg INHALER IH SCH ×2 (09:38→22:26)
--- NOTE | 2019-10-22 13:37 | EKG ---
Test Reason : Blood Pressure : / mmHG Vent. Rate : 081 BPM Atrial Rate : 081 BPM P-R Int : 172 ms QRS Dur : 104 ms QT Int : 404 ms P-R-T Axes : 071 -32 132 degrees QTc Int : 469 ms SINUS RHYTHM WITH FREQUENT PREMATURE VENTRICULAR COMPLEXES POSSIBLE LEFT ATRIAL ENLARGEMENT LEFT AXIS DEVIATION LEFT VENTRICULAR HYPERTROPHY T WAVE ABNORMALITY, CONSIDER LATERAL ISCHEMIA PROLONGED QT ABNORMAL ECG WHEN COMPARED WITH ECG OF 08-FEB-2014 09:57, QRS DURATION HAS INCREASED T WAVE INVERSION MORE EVIDENT IN LATERAL LEADS QT HAS LENGTHENED Confirmed by MD Butch, Gal ([id number]) on 10/22/2019 1:37:45 PM Referred By: Confirmed By:Gal Rae MD
--- NOTE | 2019-10-22 13:37 | PN ---
Progress Note (short form) - Note Progress Note: PULMONARY States breathing is improving. No cough or wheezing. Vital Signs Period Temp Pulse Resp BP Sys/Fuchs Pulse Ox Last 24 Hr 97.3 F-97.9 F 68-91 18-20 114-153/55-80 96-97 Gen: NAD at rest Heart: RRR Lung: decreased breath sounds at the bases Abd: soft, nontender Ext: no edema CBC, BMP 10/21/19 06:10 10/21/19 06:10 Active Medications Albuterol Sulfate (Ventolin 0.083% Nebulizer Soln -) 1 amp NEB RQ4H [facility] Last Admin: 10/22/19 11:37 Dose: 1 amp Atorvastatin Calcium (Lipitor -) 20 mg PO HS [facility] Last Admin: 10/21/19 21:16 Dose: 20 mg Budesonide/Formoterol Fumarate (Symbicort 160/4.5mcg -) 2 puff IH BID [facility] Last Admin: 10/22/19 09:38 Dose: 2 puff Insulin Aspart (Novolog Vial Sliding Scale -) 1 vial SQ ACHS [facility]; Protocol Last Admin: 10/22/19 11:18 Dose: 2 units Methylprednisolone Sodium Succinate (Solu-Medrol -) 40 mg IVPUSH BID [facility] Metoprolol Succinate (Toprol Xl -) 25 mg PO DAILY [facility] Last Admin: 10/22/19 09:31 Dose: 25 mg Tamsulosin HCl (Flomax -) 0.8 mg PO DAILY@0830 [facility] Last Admin: 10/22/19 08:30 Dose: 0.8 mg Tiotropium [place] (Spiriva Respimat) 2 puff IH DAILY [facility] Last Admin: 10/22/19 09:38 Dose: 2 puff A/P Acute COPD Exacerbation LV Systolic Dysfunction +Troponins likely Demand Ischemia CKD HTN DM Hyperlipidemia - medrol taper - can likely change to PO prednisone in AM - inhaled bronchodilators - O2 to keep SpO2 >90% - smoking cessation - outpt PFTs - DVT prophylaxis
--- NOTE | 2019-10-22 20:43 | PN ---
Progress Note (short form) - Note Progress Note: covering dr ng 1. CKD 2. htn 3. dm 4. chf 5. dyspnea 6. copd Current Medications Albuterol Sulfate (Ventolin 0.083% Nebulizer Soln -) 1 amp NEB RQ4H [facility] Last Admin: 10/22/19 16:38 Dose: 1 amp Atorvastatin Calcium (Lipitor -) 20 mg PO HS [facility] Last Admin: 10/21/19 21:16 Dose: 20 mg Budesonide/Formoterol Fumarate (Symbicort 160/4.5mcg -) 2 puff IH BID [facility] Last Admin: 10/22/19 09:38 Dose: 2 puff Insulin Aspart (Novolog Vial Sliding Scale -) 1 vial SQ ACHS [facility]; Protocol Last Admin: 10/22/19 16:52 Dose: Not Given Methylprednisolone Sodium Succinate (Solu-Medrol -) 40 mg IVPUSH BID [facility] Metoprolol Succinate (Toprol Xl -) 25 mg PO DAILY [facility] Last Admin: 10/22/19 09:31 Dose: 25 mg Tamsulosin HCl (Flomax -) 0.8 mg PO DAILY@0830 [facility] Last Admin: 10/22/19 08:30 Dose: 0.8 mg Tiotropium [place] (Spiriva Respimat) 2 puff IH DAILY [facility] Last Admin: 10/22/19 09:38 Dose: 2 puff Last Vital Signs Temp Pulse Resp BP Pulse Ox 98.1 F 79 18 134/69 97 10/22/19 18:00 10/22/19 18:00 10/22/19 18:00 10/22/19 18:00 10/22/19 08:23 lungs clear Heart reg Abd soft CBC, BMP 10/21/19 06:10 10/21/19 06:10 IMP- ckd unclear base;line non-obstructive Plan- f/u labs in am -
[2019-10-22] MEDS ORDERED: methylPREDNISolone NA SUCC 40 MG/1 ML VIAL IVPUSH SCH (22:00)
[2019-10-22] MEDS: ATORVASTATIN CA 20 MG TABLET (FP) PO SCH (22:27)
[2019-10-23] MEDS: ALBUTEROL SO4 0.083% IH SOL 2.5 MG/3 ML VIAL.NEB. NEB SCH ×6 (03:31→20:30)
[2019-10-23] MEDS: INSULIN SLIDING SCALE (NOVOLOG) 1 VIAL SQ SCH ×4 (06:43→21:39)
[2019-10-23 08:02] LABS: ALBUMIN 3.2 g/dl (3.4-5.0); BILIRUBIN,TOTAL 0.4 mg/dL (0.2-1); BLOOD UREA NITROGEN 43.5 mg/dL (7-18); CALCIUM 8.7 mg/dL (8.5-10.1); CREATININE 1.7 mg/dL (0.55-1.3); POTASSIUM 4.7 mmol/L (3.5-5.1); TOT PROT 5.9 g/dl (6.4-8.2)
[2019-10-23] MEDS: TAMSULOSIN HCL 0.4 MG CAP PO SCH (08:34)
--- NOTE | 2019-10-23 08:41 | DS ---
Physical Examination Vital Signs: Vital Signs Temperature 97.4 F L 10/23/19 06:00 Pulse Rate 63 10/23/19 06:00 Respiratory Rate 20 10/23/19 06:00 Blood Pressure 144/58 L 10/23/19 06:00 O2 Sat by Pulse Oximetry (%) 96 10/22/19 20:38 Constitutional: Yes: No Distress Eyes: Yes: WNL HENT: Yes: WNL Neck: Yes: WNL Cardiovascular: Yes: Regular Rate and Rhythm Respiratory: Yes: CTA Bilaterally Gastrointestinal: Yes: WNL Musculoskeletal: Yes: Muscle Weakness Labs: CBC, BMP 10/21/19 06:10 10/23/19 06:10 Discharge Summary Problems reviewed: Yes Reason For Visit: CHEST PAIN Current Active Problems Abnormal EKG (Acute) Asthma (Acute) BPH (benign prostatic hyperplasia) (Acute) CKD (chronic kidney disease) (Acute) COPD (chronic obstructive pulmonary disease) (Acute) Diabetes (Acute) Procedures: Principal: IV STEROIDS/NEBS Hospital Course: ADMITTED TREATED FOR CARDIAC DECOMPENSATION CHF WITH EXACERBATION COPD TREATED WITH IV DIURESIS AND IV STEROIDS RESPIRATORY SUPPORT AND 02. Plan of Treatment: TRANSFERRING TO [facility] FOR CARDIAC CATH Condition: Improved - Instructions Diet, Activity, Other Instructions: FOLLOW UP DR ENCARNACION IN 1 WEEK [phone] [id number] TONY BURKS Referrals: Cliff Cancino MD [Primary Care Provider] - Disposition: TRANSFER ACUTE CARE/OTHER HOSP - Home Medications Comprehensive Discharge Medication List: Ambulatory Orders Albuterol Sulfate Inhaler - [Ventolin Hfa Inhaler -] 2 inh PO Q4H 10/19/19 Albuterol Sulfate [Proair Hfa] 8.5 gm IH BID 10/19/19 Atorvastatin Ca [Lipitor] 20 mg PO HS 10/19/19 Fluticasone Propionate [Flovent Hfa] 110 mcg IH BID 10/19/19 Furosemide 20 mg PO DAILY 10/19/19 Hydralazine HCl 10 mg PO DAILY 10/19/19 Isosorbide Mononitrate [Isosorbide Mononitrate ER] 30 mg PO DAILY 10/19/19 Metformin HCl [Glucophage] 500 mg PO BID 10/19/19 Metoprolol Succinate 25 mg PO DAILY 10/19/19 Prednisone 20 mg PO DAILY 10/19/19 Tamsulosin HCl 0.4 mg PO TID 10/19/19 Tiotropium [place] [Spiriva Respimat] 4 gm IH DAILY 10/19/19
[2019-10-23] MEDS: PANTOPRAZOLE 40 MG TABLET (FP) PO SCH (09:22)
[2019-10-23] MEDS: metoPROLOL SUCCINATE 25 MG TAB.SR.24H (FP) PO SCH (09:22)
[2019-10-23] MEDS: predniSONE 20 MG TABLET (UD) PO SCH (09:23)
[2019-10-23] MEDS: TIOTROPIUM BROMIDE 2.5 MCG (SPIRIVA) RESPIMAT INHALER IH SCH (09:24)
[2019-10-23] MEDS: BUDESONIDE/FORMETEROL FUMARATE 160/4.5 mcg INHALER IH SCH ×2 (09:24→21:39)
--- NOTE | 2019-10-23 09:25 | PN ---
Progress Note, Physician History of Present Illness: Pt seen and examined at bedside. He is awake and alert. he denies shortness of breath. - Current Medication List Current Medications: Active Medications Albuterol Sulfate (Ventolin 0.083% Nebulizer Soln -) 1 amp NEB RQ4H [facility] Last Admin: 10/23/19 07:35 Dose: 1 amp Atorvastatin Calcium (Lipitor -) 20 mg PO HS [facility] Last Admin: 10/22/19 22:27 Dose: 20 mg Budesonide/Formoterol Fumarate (Symbicort 160/4.5mcg -) 2 puff IH BID [facility] Last Admin: 10/22/19 22:26 Dose: 2 puff Insulin Aspart (Novolog Vial Sliding Scale -) 1 vial SQ ACHS [facility]; Protocol Last Admin: 10/23/19 06:43 Dose: Not Given Metoprolol Succinate (Toprol Xl -) 25 mg PO DAILY [facility] Last Admin: 10/22/19 09:31 Dose: 25 mg Pantoprazole Sodium (Protonix -) 40 mg PO DAILY [facility] Prednisone (Deltasone -) 50 mg PO DAILY [facility] Tamsulosin HCl (Flomax -) 0.8 mg PO DAILY@0830 [facility] Last Admin: 10/23/19 08:34 Dose: 0.8 mg Tiotropium [place] (Spiriva Respimat) 2 puff IH DAILY [facility] Last Admin: 10/22/19 09:38 Dose: 2 puff - Objective Vital Signs: Vital Signs Temperature 97.4 F L 10/23/19 06:00 Pulse Rate 63 10/23/19 06:00 Respiratory Rate 20 10/23/19 06:00 Blood Pressure 144/58 L 10/23/19 06:00 O2 Sat by Pulse Oximetry (%) 96 10/22/19 20:38 Constitutional: Yes: Calm Eyes: Yes: Conjunctiva Clear HENT: Yes: Atraumatic Neck: Yes: Supple Cardiovascular: Yes: S1, S2 Respiratory: Yes: CTA Bilaterally Gastrointestinal: Yes: Soft Genitourinary: Yes: WNL Musculoskeletal: Yes: WNL Edema: No Integumentary: Yes: WNL Neurological: Yes: Oriented Psychiatric: Yes: Oriented Labs: CBC, BMP 10/21/19 06:10 10/23/19 06:10 Assessment/Plan Current Medications Generic Name Dose Route Start Last Admin Trade Name Freq PRN Reason Stop Dose Admin Albuterol Sulfate 1 amp 10/19/19 20:00 10/23/19 07:35 Ventolin 0.083% Nebulizer Soln - NEB 1 amp RQ4H [facility] Administration Atorvastatin Calcium 20 mg 10/19/19 22:00 10/22/19 22:27 Lipitor - PO 20 mg HS [facility] Administration Budesonide/Formoterol Fumarate 2 puff 10/20/19 22:00 10/22/19 22:26 Symbicort 160/4.5mcg - IH 2 puff BID [facility] Administration Insulin Aspart 1 vial 10/19/19 16:30 10/23/19 06:43 Novolog Vial Sliding Scale - SQ Not Given ACHS [facility] Protocol Metoprolol Succinate 25 mg 10/20/19 10:00 10/22/19 09:31 Toprol Xl - PO 25 mg DAILY [facility] Administration Pantoprazole Sodium 40 mg 10/23/19 10:00 Protonix - PO DAILY [facility] Prednisone 50 mg 10/23/19 10:00 Deltasone - PO DAILY [facility] Tamsulosin HCl 0.8 mg 10/20/19 08:30 10/23/19 08:34 Flomax - PO 0.8 mg DAILY@0830 [facility] Administration Tiotropium [place] 2 puff 10/20/19 10:00 10/22/19 09:38 Spiriva Respimat IH 2 puff DAILY [facility] Administration Laboratory Tests 10/20/19 17:45 Urine Protein Negative Urine Blood Negative Impression 1. CKD 2. htn 3. dm 4. chf 5. dyspnea 6. copd Plan - ua neg for blood or protein - will need outpt follow up - renal ultrasound reviewed - should see urology as outpt as well - avoid nephrotoxins
[2019-10-23 10:51] LABS: HEMATOCRIT 42.8 % (35.4-49); HEMOGLOBIN 13.8 GM/dL (11.7-16.9); MCH 29.5 pg (25.7-33.7); MCHC 32.3 g/dl (32.0-35.9); MEAN CELL VOLUME 91.1 fl (80-96); MEAN PLT VOLUME 12.9 fl (7.5-11.1); PLATELET COUNT 113 K/MM3 (134-434); RDW 15.3 % (11.9-15.9); WHITE BLOOD COUNT 11.8 K/mm3 (4.0-10.0)
--- NOTE | 2019-10-23 11:30 | PN ---
Progress Note (short form) - Note Progress Note: Breathing is improving. No cough or wheezing. No acute events overnight. Intake & Output 10/20/19 10/21/19 10/22/19 10/23/19 23:59 23:59 23:59 23:59 Intake Total 263 398 2320 240 Output Total 8038 415 4249 1000 Balance -1355 161 130 -760 Weight 223 lb 2 oz 221 lb 9.6 oz 224 lb 6.4 oz 221 lb 6.4 oz Last Vital Signs Temp Pulse Resp BP Pulse Ox 97.6 F 68 19 129/66 96 10/23/19 09:20 10/23/19 09:20 10/23/19 09:20 10/23/19 09:20 10/22/19 20:38 Active Medications Albuterol Sulfate (Ventolin 0.083% Nebulizer Soln -) 1 amp NEB RQ4H [facility] Last Admin: 10/23/19 07:35 Dose: 1 amp Atorvastatin Calcium (Lipitor -) 20 mg PO HS [facility] Last Admin: 10/22/19 22:27 Dose: 20 mg Budesonide/Formoterol Fumarate (Symbicort 160/4.5mcg -) 2 puff IH BID [facility] Last Admin: 10/23/19 09:24 Dose: 2 puff Insulin Aspart (Novolog Vial Sliding Scale -) 1 vial SQ ACHS [facility]; Protocol Last Admin: 10/23/19 06:43 Dose: Not Given Metoprolol Succinate (Toprol Xl -) 25 mg PO DAILY [facility] Last Admin: 10/23/19 09:22 Dose: 25 mg Pantoprazole Sodium (Protonix -) 40 mg PO DAILY [facility] Last Admin: 10/23/19 09:22 Dose: 40 mg Prednisone (Deltasone -) 50 mg PO DAILY [facility] Last Admin: 10/23/19 09:23 Dose: 50 mg Tamsulosin HCl (Flomax -) 0.8 mg PO DAILY@0830 [facility] Last Admin: 10/23/19 08:34 Dose: 0.8 mg Tiotropium [place] (Spiriva Respimat) 2 puff IH DAILY [facility] Last Admin: 10/23/19 09:24 Dose: 2 puff Gen: NAD at rest Heart: RRR Lung: decreased breath sounds at the bases Abd: soft, nontender Ext: no edema Laboratory Results - last 24 hr 1110/22/19 10/23/19 16:50 22:27 05:05 WBC RBC Hgb Hct MCV MCH MCHC RDW Plt Count MPV Sodium Potassium Chloride Carbon Dioxide Anion Gap BUN Creatinine Est GFR (CKD-EPI)AfAm Est GFR (CKD-EPI)NonAf POC Glucometer 134 186 161 Random Glucose Calcium Total Bilirubin AST ALT Alkaline Phosphatase Total Protein Albumin 10/23/19 10/23/19 06:10 06:10 WBC 11.8 H RBC 4.70 Hgb 13.8 Hct 42.8 MCV 91.1 MCH 29.5 MCHC 32.3 RDW 15.3 Plt Count 113 L MPV 12.9 H D Sodium 138 Potassium 4.7 Chloride 107 Carbon Dioxide 25 Anion Gap 6 L BUN 43.5 H Creatinine 1.7 H Est GFR (CKD-EPI)AfAm 44.73 Est GFR (CKD-EPI)NonAf 38.59 POC Glucometer Random Glucose 152 H Calcium 8.7 Total Bilirubin 0.4 AST 26 ALT 79 H Alkaline Phosphatase 63 Total Protein 5.9 L Albumin 3.2 L A/P Resolving Acute COPD Exacerbation LV Systolic Dysfunction +Troponins likely Demand Ischemia CKD HTN DM Hyperlipidemia - Prednisone - inhaled bronchodilators - O2 to keep SpO2 >90% - smoking cessation - outpt PFTs - DVT prophylaxis - For transfer to [facility] for cardiac cath Dr Guerin
--- NOTE | 2019-10-23 13:03 | PN ---
Progress Note, Physician Chief Complaint: The patient appears comfortable at the time of exam. he reports no chest pain, shortness of breath, palpitation or dizziness. Telemetry reviewed, it showed sinus rhythm with frequent VPCs. History of Present Illness: 74 year old man with a PMHx of HTN, HLD, DM-II, CKD, COPD, h/o CHF admitted with shortness of breath and worsening APARICIO. He was treated for COPD exacerbation with IV steroids with improvement. TITA and mildly elevated troponin noted. Troponin has trended down with normal CK level. EKG showed nsr with frequent PVCs, LVH with possible lateral ischemia vs repolarization abnl. Echo 10/20/19: Mild LA dilatation with severe global LV systolic dysfunction. LVEF 25-30%. Grossly normal RV. Moderate LA dilatation. Moderate MR. - Current Medication List Current Medications: Active Medications Albuterol Sulfate (Ventolin 0.083% Nebulizer Soln -) 1 amp NEB RQ4H [facility] Last Admin: 10/23/19 12:05 Dose: 1 amp Atorvastatin Calcium (Lipitor -) 20 mg PO HS [facility] Last Admin: 10/22/19 22:27 Dose: 20 mg Budesonide/Formoterol Fumarate (Symbicort 160/4.5mcg -) 2 puff IH BID [facility] Last Admin: 10/23/19 09:24 Dose: 2 puff Insulin Aspart (Novolog Vial Sliding Scale -) 1 vial SQ ACHS [facility]; Protocol Last Admin: 10/23/19 11:59 Dose: Not Given Metoprolol Succinate (Toprol Xl -) 25 mg PO DAILY [facility] Last Admin: 10/23/19 09:22 Dose: 25 mg Pantoprazole Sodium (Protonix -) 40 mg PO DAILY [facility] Last Admin: 10/23/19 09:22 Dose: 40 mg Prednisone (Deltasone -) 50 mg PO DAILY [facility] Last Admin: 10/23/19 09:23 Dose: 50 mg Tamsulosin HCl (Flomax -) 0.8 mg PO DAILY@0830 [facility] Last Admin: 10/23/19 08:34 Dose: 0.8 mg Tiotropium [place] (Spiriva Respimat) 2 puff IH DAILY [facility] Last Admin: 10/23/19 09:24 Dose: 2 puff - Objective Vital Signs: Vital Signs Temperature 97.6 F 10/23/19 09:20 Pulse Rate 68 10/23/19 09:20 Respiratory Rate 19 10/23/19 09:20 Blood Pressure 129/66 10/23/19 09:20 O2 Sat by Pulse Oximetry (%) 97 10/23/19 09:00 General: Well developed. Well nourished. No acute distress. Head: Normocephalic. Atraumatic, Eyes: PERRLA, EOMI. Sclerae anicteric. Conjunctivae clear. Neck: Supple. (+) JVD. No bruits. Heart: Normal S1, S2: Regular rhythm and rate. No murmur. No gallop or rub. Lungs: Symmetrical poor air entry. Clear to auscultation. No crackles. No wheezing or rhonchi. Abdomen: Soft. Bowel sound positive. Non tender. No masses. Extremities: No edema. No clubbing or cyanosis. PD 2+, equal bilaterally. Neuro: Intact, no focal findings. AAO X3. Labs: CBC, BMP 10/23/19 06:10 10/23/19 06:10 Assessment/Plan 74 year old man with a PMHx of HTN, HLD, DM-II, CKD, COPD, h/o CHF admitted with shortness of breath and worsening APARICIO. He was treated for COPD exacerbation with IV steroids with improvement. TITA and mildly elevated troponin noted. Troponin has trended down with normal CK level. EKG showed nsr with frequent PVCs, LVH with possible lateral ischemia vs repolarization abnl. Echo 10/20/19: Mild LA dilatation with severe global LV systolic dysfunction. LVEF 25-30%. Grossly normal RV. Moderate LA dilatation. Moderate MR. Systolic CHF and NSTEMI. -Likely multifactorial, primarily due to COPD exacerbation, improved with IV steroid. Currently on PO prednisone. . -Troponin was mildly elevated but trended down and with a normal CK level and in the setting of TITA and possible CHF -Continue aspirin 81mg daily, statin, low dose metoprolol. -Currently euvolemic on exam. -hold off on diuretics for now can use IV Lasix prn -Echocardiogram LVEF 25-30%, mild valve abnormalities. -Given echocardiogram findings, risk factors for CAD, and baseline ekg would plan for ischemia evaluation. BUN and creat stable for the past three days. Dyspnea inproved. Right and left cardiac cath is scheduled for tomorrow at [facility]. Please keep the patient NPO after midnight.
[2019-10-23] MEDS: ATORVASTATIN CA 20 MG TABLET (FP) PO SCH (21:39)
[2019-10-24] MEDS: ALBUTEROL SO4 0.083% IH SOL 2.5 MG/3 ML VIAL.NEB. NEB SCH ×5 (00:45→15:33)
[2019-10-24] MEDS: INSULIN SLIDING SCALE (NOVOLOG) 1 VIAL SQ SCH ×2 (06:46→11:41)
--- NOTE | 2019-10-24 08:52 | DS ---
Physical Examination Vital Signs: Vital Signs Temperature 98.8 F 10/24/19 08:47 Pulse Rate 65 10/24/19 08:47 Respiratory Rate 18 10/24/19 08:47 Blood Pressure 120/73 10/24/19 08:47 O2 Sat by Pulse Oximetry (%) 96 10/23/19 21:00 Labs: CBC, BMP 10/23/19 06:10 10/23/19 06:10 Discharge Summary Problems reviewed: Yes Reason For Visit: CHEST PAIN Current Active Problems Abnormal EKG (Acute) Asthma (Acute) BPH (benign prostatic hyperplasia) (Acute) CKD (chronic kidney disease) (Acute) COPD (chronic obstructive pulmonary disease) (Acute) Diabetes (Acute) Hospital Course: ADMITTED TREATED FOR CARDIAC DECOMPENSATION CHF WITH EXACERBATION COPD TREATED WITH IV DIURESIS AND IV STEROIDS RESPIRATORY SUPPORT AND 02. cardio dr jenkins Systolic CHF and NSTEMI. -Likely multifactorial, primarily due to COPD exacerbation, improved with IV steroid. Currently on PO prednisone. . -Troponin was mildly elevated but trended down and with a normal CK level and in the setting of TITA and possible CHF -Continue aspirin 81mg daily, statin, low dose metoprolol. -Currently euvolemic on exam. -hold off on diuretics for now can use IV Lasix prn -Echocardiogram LVEF 25-30%, mild valve abnormalities. -Given echocardiogram findings, risk factors for CAD, and baseline ekg would plan for ischemia evaluation. BUN and creat stable for the past three days. Dyspnea inproved. Right and left cardiac cath is scheduled for today at [facility]. Please keep the patient NPO for procedure except meds. Check repeat BMP today. Plan of Treatment: TRANSFERRING TO [facility] FOR CARDIAC CATH Condition: Improved - Instructions Diet, Activity, Other Instructions: FOLLOW UP DR ENCARNACION IN 1 WEEK [phone] 65 [address]KS Referrals: Cliff Cancino MD [Primary Care Provider] - Disposition: TRANSFER ACUTE CARE/OTHER HOSP - Home Medications Comprehensive Discharge Medication List: Ambulatory Orders Albuterol Sulfate Inhaler - [Ventolin Hfa Inhaler -] 2 inh PO Q4H 10/19/19 Albuterol Sulfate [Proair Hfa] 8.5 gm IH BID 10/19/19 Atorvastatin Ca [Lipitor] 20 mg PO HS 10/19/19 Fluticasone Propionate [Flovent Hfa] 110 mcg IH BID 10/19/19 Furosemide 20 mg PO DAILY 10/19/19 Hydralazine HCl 10 mg PO DAILY 10/19/19 Isosorbide Mononitrate [Isosorbide Mononitrate ER] 30 mg PO DAILY 10/19/19 Metformin HCl [Glucophage] 500 mg PO BID 10/19/19 Metoprolol Succinate 25 mg PO DAILY 10/19/19 Prednisone 20 mg PO DAILY 10/19/19 Tamsulosin HCl 0.4 mg PO TID 10/19/19 Tiotropium [place] [Spiriva Respimat] 4 gm IH DAILY 10/19/19 Albuterol 0.083% Nebulizer [place] [Ventolin 0.083% Nebulizer Soln -] 1 amp NEB RQ4H amp 10/23/19 Atorvastatin Ca [Lipitor] 20 mg PO HS tablet 10/23/19 Budesonide/Formeterol Fumarate [SYMBICORT 160/4.5mcg -] 2 puff IH BID inhaler 10/23/19 Heparin - 5,000 unit IVPUSH PRN PRN vial 10/23/19 Insulin Sliding Scale [Novolog Vial Sliding Scale -] 1 vial SQ ACHS units 10/23 Metoprolol Succinate [Toprol XL -] 25 mg PO DAILY tab.sr.24h 10/23/19 Pantoprazole Sodium [Protonix] 40 mg PO DAILY #30 tablet. 10/23/19 Prednisone [Prednisone 50 MG TABLETS] See Taper PO DAILY #10 tablet 10/23/19 Tamsulosin HCl [Flomax -] 0.8 mg PO DAILY@0830 cap.er.24h 10/23/19 Tiotropium [place] [Spiriva Respimat] 2 puff IH DAILY inhaler 10/23/19
[2019-10-24] MEDS: predniSONE 20 MG TABLET (UD) PO SCH (09:24)
[2019-10-24] MEDS: PANTOPRAZOLE 40 MG TABLET (FP) PO SCH (09:25)
[2019-10-24] MEDS: TAMSULOSIN HCL 0.4 MG CAP PO SCH (09:25)
[2019-10-24] MEDS: metoPROLOL SUCCINATE 25 MG TAB.SR.24H (FP) PO SCH (09:25)
[2019-10-24] MEDS: TIOTROPIUM BROMIDE 2.5 MCG (SPIRIVA) RESPIMAT INHALER IH SCH (09:27)
[2019-10-24] MEDS: BUDESONIDE/FORMETEROL FUMARATE 160/4.5 mcg INHALER IH SCH (09:27)
--- NOTE | 2019-10-24 10:36 | PN ---
Progress Note, Physician History of Present Illness: pt seen and examined today in nad. lying flat, comfortably. no sob. states he is feeling better. no overnight events. no new complaints. - Current Medication List Current Medications: Active Medications Albuterol Sulfate (Ventolin 0.083% Nebulizer Soln -) 1 amp NEB RQ4H [facility] Last Admin: 10/24/19 06:59 Dose: 1 amp Atorvastatin Calcium (Lipitor -) 20 mg PO HS [facility] Last Admin: 10/23/19 21:39 Dose: 20 mg Budesonide/Formoterol Fumarate (Symbicort 160/4.5mcg -) 2 puff IH BID [facility] Last Admin: 10/24/19 09:27 Dose: 2 puff Insulin Aspart (Novolog Vial Sliding Scale -) 1 vial SQ ACHS [facility]; Protocol Last Admin: 10/24/19 06:46 Dose: Not Given Metoprolol Succinate (Toprol Xl -) 25 mg PO DAILY [facility] Last Admin: 10/24/19 09:25 Dose: 25 mg Pantoprazole Sodium (Protonix -) 40 mg PO DAILY [facility] Last Admin: 10/24/19 09:25 Dose: 40 mg Prednisone (Deltasone -) 50 mg PO DAILY [facility] Last Admin: 10/24/19 09:24 Dose: 50 mg Tamsulosin HCl (Flomax -) 0.8 mg PO DAILY@0830 [facility] Last Admin: 10/24/19 09:25 Dose: 0.8 mg Tiotropium [place] (Spiriva Respimat) 2 puff IH DAILY [facility] Last Admin: 10/24/19 09:27 Dose: 2 puff - Objective Vital Signs: Vital Signs Temperature 98.8 F 10/24/19 08:47 Pulse Rate 65 10/24/19 08:47 Respiratory Rate 18 10/24/19 08:47 Blood Pressure 120/73 10/24/19 08:47 O2 Sat by Pulse Oximetry (%) 96 10/23/19 21:00 Constitutional: Yes: No Distress, Calm Eyes: Yes: Conjunctiva Clear, EOM Intact HENT: Yes: Atraumatic, Normocephalic Neck: Yes: Supple, Trachea Midline Cardiovascular: Yes: Regular Rate and Rhythm, S1, S2. No: Bradycardia, Tachycardia, Pulse Irregular, Bruit, JVD, Gallop, Murmur, Rub, S3, S4, Varicosities Respiratory: Yes: Regular, CTA Bilaterally. No: Rales, Rhonchi, SOB, Wheezes Gastrointestinal: Yes: Normal Bowel Sounds, Soft. No: Distention, Tenderness Musculoskeletal: Yes: WNL Extremities: Yes: WNL Edema: No Peripheral Pulses WNL: Yes Peripheral Pulses: Left Doralis Pedis: 2+, Right Dorsalis Pedis: 2+ Neurological: Yes: Alert, Oriented Psychiatric: Yes: Alert, Oriented Labs: CBC, BMP 10/23/19 06:10 10/23/19 06:10 - ....Imaging Chest X-ray: Report Reviewed, Image Reviewed EKG: Report Reviewed, Image Reviewed Other: Report Reviewed, Image Reviewed (tele-nsr, frequent pvcs) Assessment/Plan 74 year old man with a PMHx of HTN, HLD, DM-II, CKD, COPD, h/o CHF admitted with shortness of breath and worsening APARICIO. He was treated for COPD exacerbation with IV steroids with improvement. TITA and mildly elevated troponin noted. Troponin has trended down with normal CK level. EKG showed nsr with frequent PVCs, LVH with possible lateral ischemia vs repolarization abnl. Echo 10/20/19: Mild LA dilatation with severe global LV systolic dysfunction. LVEF 25-30%. Grossly normal RV. Moderate LA dilatation. Moderate MR. Systolic CHF and NSTEMI. -Likely multifactorial, primarily due to COPD exacerbation, improved with IV steroid. Currently on PO prednisone. . -Troponin was mildly elevated but trended down and with a normal CK level and in the setting of TITA and possible CHF -Continue aspirin 81mg daily, statin, low dose metoprolol. -Currently euvolemic on exam. -hold off on diuretics for now can use IV Lasix prn -Echocardiogram LVEF 25-30%, mild valve abnormalities. -Given echocardiogram findings, risk factors for CAD, and baseline ekg would plan for ischemia evaluation. BUN and creat stable for the past three days. Dyspnea inproved. Right and left cardiac cath is scheduled for today at [facility]. Please keep the patient NPO for procedure except meds. Check repeat BMP today.
--- NOTE | 2019-10-24 12:29 | PN ---
Progress Note, Physician History of Present Illness: pulmonary alert,comfortable,-resp distress - Current Medication List Current Medications: Active Medications Albuterol Sulfate (Ventolin 0.083% Nebulizer Soln -) 1 amp NEB RQ4H [facility] Last Admin: 10/24/19 11:14 Dose: 1 amp Atorvastatin Calcium (Lipitor -) 20 mg PO HS [facility] Last Admin: 10/23/19 21:39 Dose: 20 mg Budesonide/Formoterol Fumarate (Symbicort 160/4.5mcg -) 2 puff IH BID [facility] Last Admin: 10/24/19 09:27 Dose: 2 puff Insulin Aspart (Novolog Vial Sliding Scale -) 1 vial SQ ACHS [facility]; Protocol Last Admin: 10/24/19 11:41 Dose: Not Given Metoprolol Succinate (Toprol Xl -) 25 mg PO DAILY [facility] Last Admin: 10/24/19 09:25 Dose: 25 mg Pantoprazole Sodium (Protonix -) 40 mg PO DAILY [facility] Last Admin: 10/24/19 09:25 Dose: 40 mg Prednisone (Deltasone -) 50 mg PO DAILY [facility] Last Admin: 10/24/19 09:24 Dose: 50 mg Tamsulosin HCl (Flomax -) 0.8 mg PO DAILY@0830 [facility] Last Admin: 10/24/19 09:25 Dose: 0.8 mg Tiotropium [place] (Spiriva Respimat) 2 puff IH DAILY [facility] Last Admin: 10/24/19 09:27 Dose: 2 puff - Objective Vital Signs: Vital Signs Temperature 98.8 F 10/24/19 08:47 Pulse Rate 65 10/24/19 08:47 Respiratory Rate 18 10/24/19 08:47 Blood Pressure 120/73 10/24/19 08:47 O2 Sat by Pulse Oximetry (%) 100 10/24/19 09:00 Constitutional: Yes: Well Nourished, Calm Eyes: Yes: WNL HENT: Yes: WNL Neck: Yes: WNL Cardiovascular: Yes: Regular Rate and Rhythm, S1, S2 Respiratory: Yes: CTA Bilaterally Gastrointestinal: Yes: Normal Bowel Sounds, Soft Extremities: Yes: WNL Edema: No Labs: Problem List - Problems (1) Abnormal EKG Code(s): R94.31 - ABNORMAL ELECTROCARDIOGRAM [ECG] [EKG] (2) CKD (chronic kidney disease) Code(s): N18.9 - CHRONIC KIDNEY DISEASE, UNSPECIFIED Qualifiers: Chronic kidney disease stage: unspecified stage Qualified Code(s): N18.9 - Chronic kidney disease, unspecified (3) COPD (chronic obstructive pulmonary disease) Code(s): J44.9 - CHRONIC OBSTRUCTIVE PULMONARY DISEASE, UNSPECIFIED Qualifiers: COPD type: unspecified COPD Qualified Code(s): J44.9 - Chronic obstructive pulmonary disease, unspecified (4) Diabetes Code(s): E11.9 - TYPE 2 DIABETES MELLITUS WITHOUT COMPLICATIONS Qualifiers: Diabetes mellitus type: type 2 Assessment/Plan A/P Resolving Acute COPD Exacerbation LV Systolic Dysfunction +Troponins likely Demand Ischemia CKD stable HTN DM Hyperlipidemia - Prednisone taper - inhaled bronchodilators - O2 to keep SpO2 >90% - smoking cessation - outpt PFTs - cardiac cath - low dose chest ct outpatient for lung cancer screening DR LAMAR
[2019-10-24 13:27] LABS: BLOOD UREA NITROGEN 45.6 mg/dL (7-18); CALCIUM 8.6 mg/dL (8.5-10.1); CREATININE 1.6 mg/dL (0.55-1.3); POTASSIUM 4.4 mmol/L (3.5-5.1)
[2019-10-24 14:24] VITALS: BP 128/84; PULSE 66; TEMP 97.6
--- NOTE | 2019-10-24 15:12 | PN ---
Progress Note, Physician History of Present Illness: Pt seen and examined at bedside. He is awake and alert. He denies shortness of breath. - Current Medication List Current Medications: Active Medications Albuterol Sulfate (Ventolin 0.083% Nebulizer Soln -) 1 amp NEB RQ4H [facility] Last Admin: 10/24/19 11:14 Dose: 1 amp Atorvastatin Calcium (Lipitor -) 20 mg PO HS [facility] Last Admin: 10/23/19 21:39 Dose: 20 mg Budesonide/Formoterol Fumarate (Symbicort 160/4.5mcg -) 2 puff IH BID [facility] Last Admin: 10/24/19 09:27 Dose: 2 puff Insulin Aspart (Novolog Vial Sliding Scale -) 1 vial SQ ACHS [facility]; Protocol Last Admin: 10/24/19 11:41 Dose: Not Given Metoprolol Succinate (Toprol Xl -) 25 mg PO DAILY [facility] Last Admin: 10/24/19 09:25 Dose: 25 mg Pantoprazole Sodium (Protonix -) 40 mg PO DAILY [facility] Last Admin: 10/24/19 09:25 Dose: 40 mg Prednisone (Deltasone -) 50 mg PO DAILY [facility] Last Admin: 10/24/19 09:24 Dose: 50 mg Tamsulosin HCl (Flomax -) 0.8 mg PO DAILY@0830 [facility] Last Admin: 10/24/19 09:25 Dose: 0.8 mg Tiotropium [place] (Spiriva Respimat) 2 puff IH DAILY [facility] Last Admin: 10/24/19 09:27 Dose: 2 puff - Objective Vital Signs: Vital Signs Temperature 97.6 F 10/24/19 14:00 Pulse Rate 66 10/24/19 14:00 Respiratory Rate 16 10/24/19 14:00 Blood Pressure 128/84 10/24/19 14:00 O2 Sat by Pulse Oximetry (%) 100 10/24/19 09:00 Constitutional: Yes: Calm Eyes: Yes: Conjunctiva Clear HENT: Yes: Atraumatic Neck: Yes: Supple Cardiovascular: Yes: S1, S2 Respiratory: Yes: CTA Bilaterally Gastrointestinal: Yes: Soft Genitourinary: Yes: WNL Musculoskeletal: Yes: WNL Edema: No Integumentary: Yes: WNL Neurological: Yes: Oriented Psychiatric: Yes: Oriented Labs: CBC, BMP 10/23/19 06:10 10/24/19 12:30 Assessment/Plan Current Medications Generic Name Dose Route Start Last Admin Trade Name Toño PRN Reason Stop Dose Admin Albuterol Sulfate 1 amp 10/19/19 20:00 10/24/19 11:14 Ventolin 0.083% Nebulizer Soln - NEB 1 amp RQ4H [facility] Administration Atorvastatin Calcium 20 mg 10/19/19 22:00 10/23/19 21:39 Lipitor - PO 20 mg HS [facility] Administration Budesonide/Formoterol Fumarate 2 puff 10/20/19 22:00 10/24/19 09:27 Symbicort 160/4.5mcg - IH 2 puff BID [facility] Administration Insulin Aspart 1 vial 10/19/19 16:30 10/24/19 11:41 Novolog Vial Sliding Scale - SQ Not Given ACHS [facility] Protocol Metoprolol Succinate 25 mg 10/20/19 10:00 10/24/19 09:25 Toprol Xl - PO 25 mg DAILY [facility] Administration Pantoprazole Sodium 40 mg 10/23/19 10:00 10/24/19 09:25 Protonix - PO 40 mg DAILY [facility] Administration Prednisone 50 mg 10/23/19 10:00 10/24/19 09:24 Deltasone - PO 50 mg DAILY [facility] Administration Tamsulosin HCl 0.8 mg 10/20/19 08:30 10/24/19 09:25 Flomax - PO 0.8 mg DAILY@0830 [facility] Administration Tiotropium [place] 2 puff 10/20/19 10:00 10/24/19 09:27 Spiriva Respimat IH 2 puff DAILY [facility] Administration Impression 1. CKD 2. htn 3. dm 4. chf 5. dyspnea 6. copd Plan - will need outpt follow up - can see in office, info given to pt - avoid nsaids - should see urology as outpt as well - avoid nephrotoxins
== END 2019-10-24 16:06 | disposition short-term general hospital (02) | DRG 190 ==
LOC: JER 10:08 → JERBED 13:11 → J4S 10-20 17:27
PROVIDERS: ADMIT Student in an Organized Health Care Education/Training Program; ATTEND Student in an Organized Health Care Education/Training Program
DX: J44.1 Chronic obstructive pulmonary disease with (acute) exacerbation (principal); I21.4 Non-ST elevation (NSTEMI) myocardial infarction; I13.0 Hypertensive heart and chronic kidney disease with heart failure and stage 1 through stage 4 chronic kidney disease, or unspecified chronic kidney disease; N17.9 Acute kidney failure, unspecified; I50.22 Chronic systolic (congestive) heart failure; N18.9 Chronic kidney disease, unspecified; J44.9 Chronic obstructive pulmonary disease, unspecified; E11.22 Type 2 diabetes mellitus with diabetic chronic kidney disease; E78.5 Hyperlipidemia, unspecified; Z79.84 Long term (current) use of oral hypoglycemic drugs; R94.31 Abnormal electrocardiogram [ECG] [EKG]; N40.0 Benign prostatic hyperplasia without lower urinary tract symptoms; I49.3 Ventricular premature depolarization
CPT/HCPCS: 36415; 71045-TC-FY; 76775-TC; 76856-TC; 80048; 80053; 80061; 81003; 82550; 82553; 82962; 83036; 83690; 83721; 83735; 83880; 84100; 84484; 85025; 85027; 85730; 93005; 93010; 93306-TC; 94640; 99285-25; J1644